=== PATIENT | male | born 1985 | race African-American/Black ===

== ENCOUNTER 2016-08-25 12:37 | Observation (INO) | payer MEDICAID ==
[~2016-08-25] VITALS: Ht 172.7 cm; Wt 68.6 kg
[~2016-08-25 12:37] MED LIST: BUPR-86 PO; BUPR150T13 PO; CLON0.1T PO; FOLI-17 PO; OLAN10TA3 PO; OLAN5TAB3 PO; OLAN5TAB9 PO; THIA100T6 PO; TRAZ100T15 PO; WELLBUTRIN; ZIPR20CA2 PO; ZYPREXA
[2016-08-25] MEDS ORDERED: ZIPRASIDONE 20 MG INJ IM ONE ×2 (13:30→14:27)
[2016-08-25 13:42] LABS: ACETAMINOPHEN < 2 mcg/mL (10-30); BLOOD UREA NITROGEN 5 mg/dL (7-18)
[2016-08-25 18:00] LABS: DAU SCREEN DISCLAIMER
[2016-08-25] MEDS ORDERED: BISACODYL 10 MG SUPP PR PRN (20:00)
[2016-08-25] MEDS ORDERED: ACETAMINOPHEN 325 MG TABLET PO PRN (20:00)
[2016-08-25] MEDS ORDERED: ONDANSETRON ODT 4 MG PO PRN (20:00)
[2016-08-25] MEDS ORDERED: POLYETHYLENE GLYCOL 17 GM PACKET PO PRN (20:00)
[2016-08-25 20:34] VITALS: BP 132/86
[2016-08-25] MEDS ORDERED: OLANZAPINE 5 MG TABLET PO SCH (21:00)
[2016-08-26 08:00] VITALS: BP 109/74
[2016-08-26] MEDS ORDERED: SENNA/DOCUSATE TABLET PO SCH (09:00)
== END 2016-08-26 16:15 ==
LOC: ED 15:16 → INTOOBSV 19:18 → EDIP 19:18 → 3E 20:34
PROVIDERS: ADMIT Internal Medicine; ATTEND Internal Medicine
DX: R45.851 Suicidal ideations (principal); R44.1 Visual hallucinations; R44.0 Auditory hallucinations; R00.0 Tachycardia, unspecified; F20.9 Schizophrenia, unspecified; F31.9 Bipolar disorder, unspecified; F17.210 Nicotine dependence, cigarettes, uncomplicated
CPT/HCPCS: 36415; 80048; 80307; 80329; 81003; 82040; 85025; 93005; 96372; 99285; G0378; J3486; G0480

== ENCOUNTER 2016-08-30 16:41 | Emergency (ER) | payer MEDICAID ==
[~2016-08-30] VITALS: Ht 172.7 cm; Wt 68.7 kg
[2016-08-30 16:53] VITALS: BP 163/91
[2016-08-30 17:36] LABS: BLOOD UREA NITROGEN 9 mg/dL (7-18)
[2016-08-30 17:37] LABS: ACETAMINOPHEN < 2 mcg/mL (10-30)
[2016-08-30] MEDS ORDERED: CHLO200T2 PO (17:45)
[2016-08-30] MEDS ORDERED: BUPR-86 PO (17:45)
[2016-08-30 17:46] LABS: DIFF TOTAL CELLS COUNTED 100 CELL DIFF
[2016-08-30 17:48] LABS: VERIFY COUNTS? YES
== END 2016-08-30 18:59 | disposition home or self-care (01) ==
LOC: ED 18:51
DX: F42.9 Obsessive-compulsive disorder, unspecified (principal); F41.0 Panic disorder [episodic paroxysmal anxiety]; F29 Unspecified psychosis not due to a substance or known physiological condition; F32.9 Major depressive disorder, single episode, unspecified; F20.9 Schizophrenia, unspecified; F15.10 Other stimulant abuse, uncomplicated; Z87.891 Personal history of nicotine dependence; Z88.8 Allergy status to other drugs, medicaments and biological substances
CPT/HCPCS: 36415; 80048; 80307; 80329; 82040; 85025; 99284; G0480

== ENCOUNTER 2016-09-01 02:02 | Emergency (ER) | payer MEDICAID ==
[~2016-09-01] VITALS: Ht 172.7 cm; Wt 64.7 kg
[~2016-09-01 02:02] MED LIST changes: +CHLO200T2 PO
[2016-09-01 02:10] VITALS: BP 130/58
== END 2016-09-01 03:16 | disposition home or self-care (01) ==
LOC: ED 02:49
DX: F20.9 Schizophrenia, unspecified (principal); F32.9 Major depressive disorder, single episode, unspecified; F15.10 Other stimulant abuse, uncomplicated
CPT/HCPCS: 99284

== ENCOUNTER 2016-09-10 05:30 | Emergency (ER) | payer MEDICAID ==
[~2016-09-10] VITALS: Ht 172.7 cm; Wt 69.3 kg
[2016-09-10 05:31] VITALS: BP 109/71
== END 2016-09-10 06:14 | disposition home or self-care (01) ==
LOC: ED 06:13
DX: Z76.0 Encounter for issue of repeat prescription (principal); F20.1 Disorganized schizophrenia
CPT/HCPCS: 99283

== ENCOUNTER 2016-10-07 08:49 | Emergency (ER) | payer MEDICAID ==
[~2016-10-07] VITALS: Ht 172.7 cm; Wt 70.4 kg
[2016-10-07 08:51] VITALS: BP 123/73
[2016-10-07 10:40] LABS: ASPARTATE AMINO TRANSFERASE 22 U/L (15-37); BLOOD UREA NITROGEN 18 mg/dL (7-18)
== END 2016-10-07 11:45 | disposition left against medical advice (07) ==
LOC: ED 11:39
DX: R10.11 Right upper quadrant pain (principal)
CPT/HCPCS: 36415; 74020; 80053; 83690; 85025; 99285

== ENCOUNTER 2016-10-08 19:18 | Emergency (ER) | payer MEDICAID ==
[~2016-10-08] VITALS: Ht 172.7 cm; Wt 70.4 kg
[2016-10-08] MEDS ORDERED: SODIUM CHLORIDE 0.9% 1,000ML IVBOLUS ONE (21:00)
[2016-10-08] MEDS ORDERED: SODIUM CHLORIDE FLUSH 10ML SYR IVF ONE (21:00)
[2016-10-08 21:47] LABS: ASPARTATE AMINO TRANSFERASE 23 U/L (15-37); BLOOD UREA NITROGEN 14 mg/dL (7-18)
[2016-10-08] MEDS ORDERED: OMNIPAQUE 350 MG/ML, 100ML BOTTLE ONE (22:31)
[2016-10-08 23:47] VITALS: BP 122/80
== END 2016-10-08 23:49 | disposition home or self-care (01) ==
LOC: ED 23:24
DX: D18.03 Hemangioma of intra-abdominal structures (principal)
CPT/HCPCS: 36415; 74177; 80053; 83690; 85025; 85610; 96360; 96361; 99285; J7030; Q9967

== ENCOUNTER 2019-02-09 06:57 | Emergency (ER) | payer MEDICAID ==
[~2019-02-09] VITALS: Ht 172.7 cm; Wt 70.6 kg
[~2019-02-09 06:57] MED LIST changes: -CLON0.1T PO; +CLON0.1T22 PO; -THIA100T6 PO; +THIA100T67 PO; +TRAZ-137 PO; -TRAZ100T15 PO
[2019-02-09 08:08] LABS: MEAN CORPUSCULAR HEMOGLOBIN 27.7 pg (27.5-34.5); MEAN CORPUSCULAR HGB CONC 32.9 g/dL (33.2-36.2); MEAN CORPUSCULAR VOLUME 84.2 fL (81-97); MEAN PLATELET VOLUME 9.7 fL (7.4-10.4); PLATELET COUNT 223 x10^3/uL (130-400); RED BLOOD COUNT 4.88 x10^6/uL (4.38-5.82); RED CELL DISTRIBUTION WIDTH 14.8 % (9.4-14.8)
[2019-02-09 08:19] LABS: ALANINE AMINOTRANSFERASE 27 U/L (12-78); ALBUMIN 3.9 g/dL (3.4-5.0); ANION GAP 8 mmol/L (5-15); CALCIUM 8.7 mg/dL (8.5-10.1); CHLORIDE 106 mmol/L (98-107); CREATININE 1.07 mg/dL (0.7-1.3)
[2019-02-09 08:21] LABS: SALICYLATE LEVEL < 1.7 mg/dL (2.8-20.0)
[2019-02-09 08:22] LABS: ALKALINE PHOSPHATASE 51 U/L (45-117); TOTAL PROTEIN 7.5 g/dL (6.4-8.2)
[2019-02-09 08:38] LABS: BASOPHILS # (AUTO) 0.03 x10^3/uL (0-0.1); BASOPHILS % (AUTO) 1 % (0-1); EOSINOPHILS # (AUTO) 0.33 x10^3/uL (0-0.4); EOSINOPHILS % (AUTO) 6 % (1-7); LYMPHOCYTES # (AUTO) 1.53 x10^3/uL (1-3.4); LYMPHOCYTES % (AUTO) 29 % (22-44); MD NO; MONOCYTES # (AUTO) 0.71 x10^3/uL (0.2-0.8); MONOCYTES % (AUTO) 14 % (2-9); NEUTROPHILS # (AUTO) 2.68 x10^3/uL (1.8-6.8); NEUTROPHILS % (AUTO) 51 % (42-75)
--- NOTE | 2019-02-09 11:07 | NUR ---
TASK RN: FIRST CONTACT WITH PT. Pt sitting on gurney in room secured for SI. CAFETERIA SUPERVISOR at bedside. No needs expressed at this time.
--- NOTE | 2019-02-09 11:13 | NUR ---
Sitter near doorway in direct line of sight for observation. No needs requested at this time.
--- NOTE | 2019-02-09 11:21 | NUR ---
Lunch tray ordered.
--- NOTE | 2019-02-09 11:25 | NUR ---
Yellow slip sent to pharmacy requesting medication per EMAR.
[2019-02-09] MEDS ORDERED: HALOPERIDOL 5 MG TABLET PO PRN (11:30)
[2019-02-09] MEDS ORDERED: HALOPERIDOL 5 MG/ML IM PRN (11:30)
--- NOTE | 2019-02-09 11:30 | NUR ---
Preceptor RN (late entry): Bedside report from Lisandro RYAN pt care assumed at this time, pt moved to suicide secured ED room 39, sitter at doorway. Belongings secured by prior RN, awaiting meds from pharmacy & pt aware that UA is needed, lunch tray ordered & pt reports no other needs. KAMRON Bernal has been at bedside to assess pt & given her recommendation to EDMD. WCTM. Report to King RYAN
[2019-02-09] MEDS ORDERED: OLANZAPINE 10 MG TABLET ONE (12:16)
[2019-02-09] MEDS: FLUOXETINE HCL 20 MG CAPSULE PO SCH (12:21)
[2019-02-09] MEDS: OLANZAPINE 10 MG TABLET PO SCH (12:22)
--- NOTE | 2019-02-09 12:38 | NUR ---
PATIENT EATING LUNCH IN HOSPITAL BED IN A SUICIDE SECURED ROOM WITH A SITTER OUTSIDE. URINE COLLECTED. AWAITING UA RESULTS AND MD DISPOSITION.
[2019-02-09 12:45] LABS: MICROSCOPIC INDICATED
[2019-02-09 12:54] LABS: CULTURE INDICATED? NO
[2019-02-09 12:55] LABS: AMPHETAMINE SCREEN, URINE Negative (Negative); BARBITURATE SCREEN, URINE Negative (Negative); BENZODIAZEPINE SCREEN, URINE Negative (Negative); CANNABINOID SCREEN, URINE Positive (Negative); COCAINE SCREEN, URINE Negative (Negative); METHADONE SCREEN, URINE Negative (Negative); OPIATE SCREEN, URINE Negative (Negative)
--- NOTE | 2019-02-09 13:34 | NUR ---
PATIENT RESTING IN HOSPITAL BED IN SUICIDE SECURED ROOM WITH SITTER IN DOORWAY. AWAITING DOCTOR DISPO
--- NOTE | 2019-02-09 14:14 | NUR ---
TASK RN: FIRST CONTACT WITH PT. Pt resting on hospital bed with eyes closed supine. Pt has unlabored respirations with even chest rise and fall. Sitter near doorway in direct line of sight for observation. Room remains secured for SI and HI precautions. No needs expressed at this time.
--- NOTE | 2019-02-09 14:30 | NUR ---
PATIENT IS RESTING IN HOSPITAL BED IN SUICIDE SECURED ROOM WITH SITTERS IN THE DOORWAY.
--- NOTE | 2019-02-09 15:34 | NUR ---
PATIENT IS RESTING IN HOSPITAL BED IN SUICIDE SECURED ROOM WITH A SITTER IN THE DOORWAY. PATIENT HAS NO REQUESTS AT THIS TIME.
--- NOTE | 2019-02-09 15:49 | NUR ---
TOOK INVENTORY OF BELONGINGS. DOCUMENTED BELONGINGS.
--- NOTE | 2019-02-09 16:22 | NUR ---
PATIENT IS RESTING IN HOSPITAL BED IN A SUICIDE SECURED ROOM WITH A SITTER IN THE DOORWAY
--- NOTE | 2019-02-09 17:51 | NUR ---
PATIENT IS RESTING IN HOSPTIAL BED IN SUICIDE SECURED ROOM WITH A SITTER IN THE DOORWAY.
--- NOTE | 2019-02-09 18:18 | NUR ---
Preceptor RN: Pt asleep in hospital bed w/ symmetric & regular chest rise in suicide secured room w/ sitter at doorway, Pt has had dinner tray. FELI.
--- NOTE | 2019-02-09 18:54 | NUR ---
PACKET FAXED TO [facility]
--- NOTE | 2019-02-09 19:06 | NUR ---
REPORT RECEIVED FROM ANDRESSA RN. CARE ASSUMED. PT ASLEEP IN ROOM, SITTER IN HALLWAY FOR DIRECT LINE OF SIGHT.
--- NOTE | 2019-02-09 20:50 | NUR ---
PT ASLEEP IN ROOM, SITTER IN HALLWAY FOR DIRECT LINE OF SIGHT.
--- NOTE | 2019-02-09 21:18 | NUR ---
RECEIVED REPORT FROM CONNOR MOYER TO ASSUME CARE. PT RESTING ON HOSPITAL BED WITH EYES CLOSED. RESPIRATIONS EVEN, NONLABORED, VISIBLE. ROOM SECURED, SITTER IN [place].
--- NOTE | 2019-02-09 21:19 | NUR ---
REPORT GIVEN TO CONNOR BAKER. CARE TRANSFERRED AT THIS TIME.
--- NOTE | 2019-02-09 23:10 | NUR ---
PT. CONTINUES RESTING ON HOSPITAL BED WITH EYES CLOSED. NO DISTRESS NOTED. EVEN, CHEST RISE/FALL VISIBLE. SITMABRYIANS IN [place].
--- NOTE | 2019-02-10 00:19 | NUR ---
PT. CONTINUES RESTING ON HOSPITAL BED WITH EYES CLOSED. NO DISTRESS NOTED. EVEN, CHEST RISE/FALL VISIBLE. SITMABRYIANS IN [place].
--- NOTE | 2019-02-10 02:36 | NUR ---
PT. CONTINUES RESTING ON HOSPITAL BED WITH EYES CLOSED. NO DISTRESS NOTED. RESPIRATIONS EVEN, NON-LABORED. ROOM REMANS SECURED. SITTER IN [place]
--- NOTE | 2019-02-10 05:35 | NUR ---
PT RESTING IN BED WITH EYES CLOSED. RESPIRATIONS EVEN AND UNLABORED. ALL SAFETY MEASURES IN PLACE. NEEDS MET. SITTER IN [place].
--- NOTE | 2019-02-10 06:22 | NUR ---
PT RESTING IN BED. PT PROVIDED WATER UPON REQUEST. ALL NEEDS MET. SITTER IN LINE OF SIGHT IN HALLWAY. ROOM SECURED PER PROTOCOL.
--- NOTE | 2019-02-10 06:57 | NUR ---
REPORT TAKEN FROM CONNOR JUDD AND CONNOR BAKER. PT RESTING ON HOSPITAL BED. RESPIRATIONS EVEN AND UNLABORED. NADN. SITTER IN HALLWAY. ROOM SECURE.
--- NOTE | 2019-02-10 07:10 | NUR ---
BREAKFAST ORDERED FOR PT.
[2019-02-10] MEDS ORDERED: OLANZAPINE 10 MG TABLET ONE (08:09)
[2019-02-10] MEDS ORDERED: FLUOXETINE HCL 20 MG CAPSULE ONE (08:09)
[2019-02-10] MEDS: FLUOXETINE HCL 20 MG CAPSULE PO SCH (08:12)
[2019-02-10] MEDS: OLANZAPINE 10 MG TABLET PO SCH (08:12)
--- NOTE | 2019-02-10 08:15 | NUR ---
PT MEDICATED PER EMAR. DENIES SI/HI AT THIS TIME. RESTING ON HOSPITAL BED. ROOM SECURE. SITTER AT BEDSIDE. DENIES NEEDS. NADN. AWARE THAT BREAKFAST IS ON THE WAY.
--- NOTE | 2019-02-10 08:34 | NUR ---
PT PROVIDED WITH BREAKFAST TRAY.
--- NOTE | 2019-02-10 09:00 | NUR ---
REPORT RECEIVED FROM CONNOR MARMOLEJO AT BEDSIDE AT THIS TIME. PT IS SLEEPING, RESPS EVEN AND UNLABORED. SITTER MONITORING FROM [facility] FOR SAFETY. ROOM SECURE. CARE ASSUMED AT THIS TIME.
--- NOTE | 2019-02-10 10:11 | NUR ---
PT SLEEPING ON HOSPITAL BED, RESPS EVEN AND UNLABORED. SITTER MONITORING FROM HALLWAY FOR SAFETY. ROOM REMAINS SECURE.
--- NOTE | 2019-02-10 11:30 | NUR ---
TP RN: [facility] called, pt is 4th on their list for acceptance.
--- NOTE | 2019-02-10 11:47 | NUR ---
report given to break CONNOR Newton pt sleeping on hospital bed. resps even and unlabored. sitter monitoring from [facility] for safety.
--- NOTE | 2019-02-10 11:52 | NUR ---
BREAK RN: PT SLEEPING, RT LATERAL POSITION, EVEN & EASY CHEST RISE & FALL NOTED, HOSPITAL BED SIDE RAIL UP X2, SITTER OUTSIDE ROOM. SITTER STATES PT WAS UP TO BR "ABOUT 15 MINUTES AGO". LUNCH TRAY WAS PREVIOUSLY ORDERED.
--- NOTE | 2019-02-10 12:30 | NUR ---
SI LUNCH TRAY PROVIDED.
--- NOTE | 2019-02-10 13:23 | NUR ---
SI LUNCH MEAL TRAY CONSUMED APPROX 75%. PT DENIES ANY PAIN. PT A&OX4, RESPS EVEN AND UNLABORED. PT DENIES ANY NEEDS AT THIS TIME. ROOM REMAINS SECURE. SITTER MONITORING FROM [facility] FOR SAFETY.
--- NOTE | 2019-02-10 14:04 | NUR ---
REPORT FROM CONNOR MUNOZ. PT SLEEPING IN HOSPITAL BED AT THIS TIME. ROOM SECURED. SITTER OUTSIDE ROOM.
--- NOTE | 2019-02-10 14:07 | NUR ---
REPORT GIVEN TO CONNOR DYKES WHO IS ASSUMING CARE AT THIS TIME. SITTER MONITORING FROM [facility] FOR SAFETY, ROOM REMAINS SECURE.
--- NOTE | 2019-02-10 16:18 | NUR ---
PT ASLEEP IN [facility]. ROOM SECURED. SITTER OUTSIDE ROOM. NAD NOTED. EQUAL RISE AND FALL OF CHEST NOTED.
--- NOTE | 2019-02-10 18:26 | NUR ---
SPOKE WITH CIARRA REGARDING SUCIDAL ASSESMENT FOR SITTER. ORDER PLACED FOR PATIENT TO BE 2:1
--- NOTE | 2019-02-10 19:31 | NUR ---
PER NAVID AT [facility]- THIS PATIENT IS #2 FOR TOMORROW DISCHARGES COME UP
--- NOTE | 2019-02-10 19:55 | NUR ---
Report to tyler Paredes.
--- NOTE | 2019-02-10 20:00 | NUR ---
REPORT RECEIVED AND CARE ASSUMED. PT RESTING AND WATCHING TV. FINISHED DINNER TRAY. WATER GIVEN. NO FURTHER NEEDS EXPRESSED. VSS. ROOM SECURED AND SITTER IN PLACE FOR OBS.
--- NOTE | 2019-02-10 21:15 | NUR ---
Pt resting and watching TV with no needs expressed. Room secured and sitter in place for obs.
--- NOTE | 2019-02-10 22:30 | NUR ---
pt sleeping with resp even and unlabored. sitter in place. no needs expressed.
--- NOTE | 2019-02-10 23:30 | NUR ---
PT SLEEPING WITH RESP EVEN AND UNLABORED. SITTER IN PLACE FOR OBS. ROOM SECURED.
--- NOTE | 2019-02-11 01:19 | NUR ---
REPORT TO DAHLIA RYAN
--- NOTE | 2019-02-11 01:29 | NUR ---
IN BED. RESP ARE EVEN AND NON LABORED. SITTER AT THE DOOR.
--- NOTE | 2019-02-11 02:47 | NUR ---
IN BED. RESP ARE EVEN AND NON LABORED. SITTER AT THE DOOR.
--- NOTE | 2019-02-11 04:14 | NUR ---
IN BED. RESP ARE EVEN AND NON LABORED. SITTER AT THE DOOR.
--- NOTE | 2019-02-11 05:21 | NUR ---
IN BED. RESP ARE EVEN AND NON LABORED. SITTER AT THE DOOR.
--- NOTE | 2019-02-11 05:22 | NUR ---
REPORT FROM DAHLIA, RN
--- NOTE | 2019-02-11 06:56 | NUR ---
REPORT RECEIVED FROM DEJUAN RYAN.
--- NOTE | 2019-02-11 07:49 | NUR ---
TASK RN: PT RESTING IN BED. SITTER REMAINS AT BEDSIDE. ROOM REMAINS SECURE.
--- NOTE | 2019-02-11 08:14 | NUR ---
MEAL TRAY PROVIDED AT THIS TIME.
[2019-02-11] MEDS ORDERED: FLUOXETINE HCL 20 MG CAPSULE ONE (08:51)
[2019-02-11] MEDS ORDERED: OLANZAPINE 10 MG TABLET ONE (08:51)
[2019-02-11] MEDS: FLUOXETINE HCL 20 MG CAPSULE PO SCH (08:53)
[2019-02-11] MEDS: OLANZAPINE 10 MG TABLET PO SCH (08:53)
--- NOTE | 2019-02-11 08:56 | NUR ---
PT MEDICATED PER EMAR. PT TOLERATED WELL.
--- NOTE | 2019-02-11 10:13 | NUR ---
pt sleeping in [facility]. resps even and unlabored. sitter monitoring from hallway for safety. room remains secure.
--- NOTE | 2019-02-11 11:02 | NUR ---
PT SLEEPING IN HOSPITAL BED. RESPS EVEN AND UNLABORED. SITTER MONITORING FROM HALLWAY FOR SAFETY. ROOM REMAINS SECURE.
--- NOTE | 2019-02-11 12:00 | NUR ---
MEAL TRAY ORDERED AT THIS TIME.
--- NOTE | 2019-02-11 13:13 | NUR ---
MEAL TRAY PROVIDED AT THIS TIME.
--- NOTE | 2019-02-11 14:20 | NUR ---
PT RESTING IN HOSPITAL BED. RESPS EVEN AND UNLABORED. SITTER MONITORING FROM HALLWAY. ROOM REMAINS SECURE.
--- NOTE | 2019-02-11 15:04 | NUR ---
PT SLEEPING IN HOSPITAL BED. RESPS EVEN AND UNLABORED. SITTER MONITORING FROM HALLWAY FOR SAFETY. ROOM REMAINS SECURE.
--- NOTE | 2019-02-11 16:38 | NUR ---
PT SLEEPING IN HOSPITAL BED. RESPS EVEN AND UNLABORED. SITTER MONITORING FROM HALLWAY FOR SAFETY. ROOM REMAINS SECURE.
--- NOTE | 2019-02-11 17:53 | NUR ---
MEAL TRAY ORDERED AT THIS TIME.
--- NOTE | 2019-02-11 18:25 | NUR ---
PT SLEEPING IN HOSPITAL BED. RESPS EVEN AND UNLABORED. SITTER MONITORING FROM HALLWAY FOR SAFETY. ROOM REMAINS SECURE.
--- NOTE | 2019-02-11 18:36 | NUR ---
MEAL TRAY PROVIDED AT THIS TIME.
--- NOTE | 2019-02-11 18:53 | NUR ---
REPORT GIVEN TO GREG RYAN.
--- NOTE | 2019-02-11 19:45 | NUR ---
Report received from CONNOR Morrison. Assumed care of this patient. Patient laying in bed, watching television with even and unlabored respiratins. No sign of acute distress. sitter on direct line of sight.
--- NOTE | 2019-02-11 19:50 | NUR ---
Patient requested for a shower. Towels provided, patient directed to shower room. Sitter on the door way monitoring patient.
--- NOTE | 2019-02-11 19:55 | NUR ---
Patient done with shower. Patient back on bed, watching television. Will continue to monitor.
--- NOTE | 2019-02-11 21:57 | NUR ---
Patient sleeping at this time with even and unlabored respirations. Sitter at the door way, in direct line of sight. Will continue to monitor.
--- NOTE | 2019-02-11 23:59 | NUR ---
Patient sleeping with even, unlabored respirations. Sitter at the door way, in direct line of sight. Will continue to monitor.
--- NOTE | 2019-02-12 01:22 | NUR ---
Patient sleeping with even, and unlabored respirations. Sitter at the doorway , patient in direct line of sight. Will continue to monitor.
--- NOTE | 2019-02-12 03:10 | NUR ---
Patient still sleeping with even , unlabored respirations. Sitter at the doorway, in direct line of sight. Will continue to monitor.
--- NOTE | 2019-02-12 04:44 | NUR ---
Patient sleeping. Even and unlabored respirations noted. Sitter at the doorway, in direct line of site. Will continue to monitor.
--- NOTE | 2019-02-12 06:30 | NUR ---
Patient still asleep. Even and unlabored respirations noted. Sitter at the doorway, in direct line of sight. Will continue to monitor.
--- NOTE | 2019-02-12 07:09 | NUR ---
Received report from CONNOR Juan, the pt is lying in bed with his eyes closed, he states he had poor sleep last night, appetite has been fair. He continues to endorse having thougts of suicide with a plan, the pt placed the covers over his head and was not willing to discuss his plan. Sitter in pt's doorway, room is secure. Will continue to monitor.
[2019-02-12] MEDS ORDERED: OLANZAPINE 10 MG TABLET ONE (08:16)
[2019-02-12] MEDS ORDERED: FLUOXETINE HCL 20 MG CAPSULE ONE (08:16)
[2019-02-12] MEDS: OLANZAPINE 10 MG TABLET PO SCH (08:18)
[2019-02-12] MEDS: FLUOXETINE HCL 20 MG CAPSULE PO SCH (08:18)
--- NOTE | 2019-02-12 08:51 | NUR ---
The pt is A&O x4, he is calm at this time. He continues to endorse having thoughts of suicide, no plan at this time. He is compliant with his medications, he has a fair appetite, he ate approx. 60% of his breakfast. Sitter in doorway, will continue to monitor.
--- NOTE | 2019-02-12 10:08 | NUR ---
Throughput RN: Called [facility] for status update, patient will not be accepted today due to the observation of (there will not be discharges on this holiday).
--- NOTE | 2019-02-12 10:12 | NUR ---
Throughput RN: Spoke with Amanda at [facility] regarding patient's status, due to patient's insurance they are not the preferred provider for this patient. Patient declined at this time.
--- NOTE | 2019-02-12 11:07 | NUR ---
He is lying in bed with the covers over his head, sitter at doorway. Will continue to monitor.
--- NOTE | 2019-02-12 11:50 | NUR ---
The pt continues to keep the covers over his head, waiting for lunch to be delivered. Sitter in doorway, will continue to monitor.
--- NOTE | 2019-02-12 12:43 | NUR ---
The pt was up ambulating in the hallway and also went to the bathroom earlier. He is currently eating lunch. Sitter at doorway, room secured. Will continue to monitor.
--- NOTE | 2019-02-12 14:26 | NUR ---
Pt appears to be sleeping at this time, sitter at doorway, will continue to monitor
--- NOTE | 2019-02-12 15:39 | NUR ---
Pt is lying in bed watching TV, sitter at doorway, will continue to monitor
--- NOTE | 2019-02-12 18:51 | NUR ---
Gave report to CONNOR Roblero, room safe, sitter in doorway.
--- NOTE | 2019-02-12 18:57 | NUR ---
DEEPAK. No immediate needs. Sitter in hallway. Roller doors in place.
--- NOTE | 2019-02-12 21:01 | NUR ---
Pt amb w/ steady gait to rr. No needs from pt.
--- NOTE | 2019-02-12 22:21 | NUR ---
No immediate needs. Sitter in hallway. Roller doors in place.
--- NOTE | 2019-02-12 23:23 | NUR ---
No immediate needs. Sitter in hallway. Roller doors in place.
--- NOTE | 2019-02-13 00:58 | NUR ---
No immediate needs. Sitter in hallway. Roller doors in place.
--- NOTE | 2019-02-13 02:04 | NUR ---
Pt sleeping comfortably on hospital bed. Nadn. Rr even and unlabored.
--- NOTE | 2019-02-13 03:29 | NUR ---
Pt sleeping comfortably on hospital bed. Nadn. Rr even and unlabored.
--- NOTE | 2019-02-13 04:47 | NUR ---
Pt sleeping comfortably on hospital bed. Nadn. Rr even and unlabored.
--- NOTE | 2019-02-13 05:42 | NUR ---
Pt sleeping comfortably on hospital bed. Nadn. Rr even and unlabored. Given water per request.
--- NOTE | 2019-02-13 06:01 | NUR ---
Pt sleeping comfortably on hospital bed. Nadn. Rr even and unlabored.
--- NOTE | 2019-02-13 06:47 | NUR ---
Pt report to Latasha scott.
--- NOTE | 2019-02-13 07:00 | NUR ---
ASSUMED CARE. PT SLEEPING. SITTER OUTSIDE ROOM WITH PT IN HIS DIRECT VIEW. EQUIPMENT AND SUPPLIES SECURED BEHIND PULL DOWN DOOR.
--- NOTE | 2019-02-13 07:00 | NUR ---
ASSUMED CARE. PT SLEE
[2019-02-13] MEDS: OLANZAPINE 10 MG TABLET PO SCH (08:22)
[2019-02-13] MEDS: FLUOXETINE HCL 20 MG CAPSULE PO SCH (08:22)
--- NOTE | 2019-02-13 08:26 | NUR ---
AWOKE PT AND MEDS GIVEN PER JUN. PROVIDED BREAKFAST
--- NOTE | 2019-02-13 10:22 | NUR ---
PT LYING IN BED WITH EYES CLOSED
--- NOTE | 2019-02-13 13:28 | NUR ---
BEDSIDE REPORT FROM DUONG RYAN. PT RESTING IN BED IN SECURED ROOM WITH SITTER AT DOORWAY. PER SITTER PT USED URINAL AND WENT BACK TO SLEEP. NO NEEDS AT THIS TIME.
[2019-02-13] MEDS ORDERED: OLANZAPINE 5 MG TABLET PO ONE (13:30)
--- NOTE | 2019-02-13 14:10 | NUR ---
BREAK RN: PT SLEEPING IN RT LATERAL POSITION, EVEN CHEST RISE & FALL NOTED. ROOM SECURE. SITTER OUTSIDE ROOM.
--- NOTE | 2019-02-13 15:02 | NUR ---
PT SLEEPING IN BED IN SECURED ROOM WITH SITTER AT DOORWAY. EQUAL CHEST RISE AND FALL
--- NOTE | 2019-02-13 16:04 | NUR ---
PT SLEEPING IN BED IN SECURED ROOM WITH SITTER AT DOORWAY, TV ON. EQUAL CHEST RISE AND FALL
--- NOTE | 2019-02-13 16:56 | NUR ---
PT SLEEPING IN BED IN SECURED ROOM WITH SITTER AT DOORWAY. EQUAL CHEST RISE AND FALL
--- NOTE | 2019-02-13 16:57 | NUR ---
DINNER TRAY ORDERED
--- NOTE | 2019-02-13 18:02 | NUR ---
PT GIVEN DINNER TRAY. PT RESTING IN BED WITH SITTER AT DOORWAY WATCHING TV. NO NEEDS AT THIS TIME.
--- NOTE | 2019-02-13 18:57 | NUR ---
REPORT FROM CONNOR JAEGER
--- NOTE | 2019-02-13 23:20 | NUR ---
PT SLEEPING IN BED IN SECURED ROOM WITH SITTER AT DOORWAY. EQUAL CHEST RISE AND FALL
--- NOTE | 2019-02-14 03:32 | NUR ---
PT SLEEPING IN BED IN SECURED ROOM WITH SITTER AT DOORWAY. EQUAL CHEST RISE AND FALL
--- NOTE | 2019-02-14 05:44 | NUR ---
PT SLEEPING IN BED IN SECURED ROOM WITH SITTER AT DOORWAY. EQUAL CHEST RISE AND FALL
--- NOTE | 2019-02-14 06:07 | NUR ---
MEAL TRAY ORDERED
--- NOTE | 2019-02-14 06:59 | NUR ---
REPORT TO CONNOR SHIRLEY
--- NOTE | 2019-02-14 08:00 | NUR ---
PATIENT RESTING IN BED, SAFETY PRECAUTIONS IN PLACE. MEAL TRAY PROVIDED
--- NOTE | 2019-02-14 08:59 | NUR ---
UPDATED [facility]MD [facility] ON SI PRECAUTIONS, RATE HIGH RISK HOWEVER NO RISK FOR CURRENT FLIGHT OR HARM, REQUESTED EVALUAITON FOR MODERATE PRECAUTIONS
--- NOTE | 2019-02-14 10:27 | NUR ---
PATIENT RESTING IN BED, SAFETY PRECAUTIONS IN PLACE. NO NEEDS AT THIS TIME.
--- NOTE | 2019-02-14 11:51 | NUR ---
MEAL TRAY PROVIDED, PATIENT COMFORTABLE
[2019-02-14] MEDS ORDERED: OLANZAPINE 10 MG TABLET ONE (12:08)
[2019-02-14] MEDS ORDERED: FLUOXETINE HCL 20 MG CAPSULE ONE (12:08)
[2019-02-14] MEDS ORDERED: OLANZAPINE 5 MG TABLET ONE (12:08)
[2019-02-14] MEDS: FLUOXETINE HCL 20 MG CAPSULE PO SCH (12:11)
[2019-02-14] MEDS: OLANZAPINE 10 MG TABLET PO SCH (12:12)
--- NOTE | 2019-02-14 14:30 | NUR ---
TASK RN: PT CURRENTLY SLEEPING IN BED. PT AWAKENS TO NAME BEING CALLED. NAD NOTED. SKIN PWD. RESP EVEN AND UNLABORED. NAD NOTED. GARAGE DOORS DOWN IN ROOM. BELONGINGS IN LOCKED LOCKER. SITTER AT DOORSIDE.
--- NOTE | 2019-02-14 15:56 | NUR ---
PATIENT COOPERATIVE, RESTING IN ROOM. SAFETY PRECAUTIONS IN PLACE.
--- NOTE | 2019-02-14 18:08 | NUR ---
MEAL TRAY PROVIDED, NO COPLAINTS AT THIS TIME. SAFETY PRECAUTIONS IN PLACE
--- NOTE | 2019-02-14 18:52 | NUR ---
REPORT OF PT FROM CONNOR SHIRLEY AND ASSUMING CARE OF PT AT THIS TIME.
--- NOTE | 2019-02-14 19:31 | NUR ---
pt sleeping in [facility] at this time; diogenes. sitter outside of pt room for direct observation of pt.
--- NOTE | 2019-02-14 21:14 | NUR ---
Tanisha velazquez in ED - 02/14/19 at 2115 by [email or web address] PT RESTING IN [facility] AT THIS TIME; SITTER OUTSIDE OF PT ROOM FOR DIRECT OBSERVATION OF PT.
--- NOTE | 2019-02-14 21:15 | NUR ---
PT RESTING IN [facility] AT THIS TIME; DEEPAK. SITTER OUTSIDE OF PT ROOM FOR DIRECT OBSERVATION OF PT.
--- NOTE | 2019-02-14 22:21 | NUR ---
Tanisha velazquez in EDM - 02/15/19 at 0057 by HERMANN REPORT OF PT FROM CONNOR SHIRLEY AND ASSUMING CARE OF PT AT THIS TIME.
--- NOTE | 2019-02-14 22:21 | NUR ---
pt sleeping in [facility] at this time; diogenes. sitter outside of pt room for direct observation of pt.
--- NOTE | 2019-02-14 23:13 | NUR ---
pt sleeping in [facility] at this time; diogenes. sitter outside of pt room for direct observation of pt.
--- NOTE | 2019-02-14 23:13 | NUR ---
Tanisha velazquez in ED - 02/15/19 at 0058 by HERMANN REPORT OF PT FROM CONNOR SHIRLEY AND ASSUMING CARE OF PT AT THIS TIME.
--- NOTE | 2019-02-15 00:58 | NUR ---
pt sleeping in [facility] at this time; diogenes. sitter outside of pt room for direct observation of pt.
--- NOTE | 2019-02-15 02:37 | NUR ---
pt sleeping in [facility] at this time; diogenes. sitter outside of pt room for direct observation of pt.
--- NOTE | 2019-02-15 03:55 | NUR ---
PT UP TO BATHROOM. PT AMBULATES TO RESTROOM WITH STEADY GAIT AND THEN BACK TO ROOM. SITTER OUTSIDE OF PT ROOM FOR DIRECT OBSERVATION OF PT AT THIS TIME.
--- NOTE | 2019-02-15 04:55 | NUR ---
pt sleeping in [facility] at this time; diogenes. sitter outside of pt room for direct observation of pt.
--- NOTE | 2019-02-15 05:06 | NUR ---
PT VSS AND UPDATED IN EMR.
--- NOTE | 2019-02-15 06:32 | NUR ---
pt sleeping in [facility] at this time; diogenes. sitter outside of pt room for direct observation of pt.
--- NOTE | 2019-02-15 06:55 | NUR ---
REPORT OF PT TO CONNOR WATTERS. ALL QUESTIONS ANSWERED.
--- NOTE | 2019-02-15 07:00 | NUR ---
ASSUMED CARE OF PT. PT SLEEPING. PT IN DIRECT VIEW OF SITTER OUTSIDE ROOM. EQUIPMENT AND SUPPLIES SECURED BEHIND PULL DOWN DOORS
--- NOTE | 2019-02-15 08:03 | NUR ---
Task RN - Pt provided [facility] ED security diet tray. Pt in NAD. Resting on [employer] eating meal. All concerns addressed. Sitter in place in line of site of pt.
--- NOTE | 2019-02-15 08:49 | NUR ---
REPORT RECEIVED FROM CONNOR WATTERS. CARE ASSUMED AT THIS TIME
[2019-02-15] MEDS ORDERED: FLUOXETINE HCL 20 MG CAPSULE ONE (08:55)
[2019-02-15] MEDS ORDERED: OLANZAPINE 10 MG TABLET ONE (08:55)
[2019-02-15] MEDS: FLUOXETINE HCL 20 MG CAPSULE PO SCH (09:06)
[2019-02-15] MEDS: OLANZAPINE 10 MG TABLET PO SCH (09:06)
--- NOTE | 2019-02-15 09:09 | NUR ---
PT MEDICATED PER ORDERS. PT STATES STILL SUICIDAL WITH SAME PLAN PRIOR TO ADMISSION. SITTER IN HALLWAY IN DIRECT LINE OF SIGHT TO PT.
--- NOTE | 2019-02-15 10:19 | NUR ---
PT ASLEEP ON HOSPITAL BED, SITTER IN HALLWAY IN DIRECT LINE OF SIGHT.
--- NOTE | 2019-02-15 11:12 | NUR ---
PT ASLEEP ON HOSPITAL BED, SITTER IN HALLWAY IN DIRECT LINE OF SIGHT.
--- NOTE | 2019-02-15 12:25 | NUR ---
PT ASLEEP ON HOSPITAL BED, SITTER IN HALLWAY IN DIRECT LINE OF SIGHT. LUNCH TRAY WITH SITTER.
--- NOTE | 2019-02-15 13:00 | NUR ---
PT ASLEEP ON HOSPITAL BED, SITTER IN HALLWAY IN DIRECT LINE OF SIGHT.
--- NOTE | 2019-02-15 14:05 | NUR ---
PT ASLEEP ON HOSPITAL BED, SITTER IN HALLWAY IN DIRECT LINE OF SIGHT.
--- NOTE | 2019-02-15 14:47 | NUR ---
TASK RN: RECIEVED BEDSIDE REPORT FROM CONNOR MOYER. ALL SAFETY MEASURES OBTAINED. SITTER AT DOORWAY, PT WITHIN FULL VIEW., PT SLEEPING ON HOSP BED. RESPS EQUAL AND UNLABORED. WILL CONTINUE TO MONITOR.
--- NOTE | 2019-02-15 15:13 | NUR ---
BEDSIDE REPORT TO CONNOR MOYER.
--- NOTE | 2019-02-15 15:15 | NUR ---
PT ASLEEP ON HOSPITAL BED, SITTER IN HALLWAY IN DIRECT LINE OF SIGHT.
--- NOTE | 2019-02-15 16:04 | NUR ---
PT ASLEEP ON HOSPITAL BED, SITTER IN HALLWAY IN DIRECT LINE OF SIGHT. DINNER TRAY ORDERED.
--- NOTE | 2019-02-15 16:53 | NUR ---
PT GIVEN DINNER TRAY. SITTER IN HALLWAY IN DIRECT LINE OF SIGHT FOR CLOSE OBS.
--- NOTE | 2019-02-15 17:47 | NUR ---
PT GIVEN JUICE, RESTING IN HOSPITAL BED, NO NEEDS, SITTER IN HALLWAY IN DIRECT LINE OF SIGHT.
--- NOTE | 2019-02-15 18:55 | NUR ---
PT ASLEEP ON HOSPITAL BED, SITTER IN HALLWAY IN DIRECT LINE OF SIGHT. DINNER TRAY ORDERED.
--- NOTE | 2019-02-15 19:36 | NUR ---
PT ASLEEP ON HOSPITAL BED, SITTER IN HALLWAY IN DIRECT LINE OF SIGHT.
--- NOTE | 2019-02-15 20:12 | NUR ---
PT ASLEEP ON HOSPITAL BED, SITTER IN HALLWAY IN DIRECT LINE OF SIGHT.
--- NOTE | 2019-02-15 20:47 | NUR ---
PT GIVEN SNACKS PER REQUEST. SITTER IN DIRECT LINE OF SIGHT.
--- NOTE | 2019-02-15 20:59 | NUR ---
REPORT GIVEN TO CONNOR CARVALHO. CARE TRANSFERRED AT THIS TIME.
--- NOTE | 2019-02-15 23:31 | NUR ---
PT SLEEPING, NO ACUTE DISTRESS NOTED AT THIS TIME. SITTER OUT SIDE ROOM FOR OBSERVATION. WILL CONT TO MONITOR.
--- NOTE | 2019-02-16 01:38 | NUR ---
REPORT RECEIVED FROM CONNOR CARVALHO. ASSUMED CARE OF PT. PT SLEEPING. RESPIRATIONS EVEN AND UNLABORED. SITTER OUTSIDE DOOR MONITORING PT. ROOM REMAINS SECURE. WILL CONTINUE TO MONITOR
--- NOTE | 2019-02-16 02:21 | NUR ---
PT SLEEPING. RESPIRATIONS EVEN AND UNLABORED. SITTER OUTSIDE DOOR MONITORING PT, WILL CONTINUE TO MONITOR.
--- NOTE | 2019-02-16 03:29 | NUR ---
TP: SPOKE TO YOSVANY FIRESTOPPER TECHNICIAN AT [facility](HAD TO CALL SUP PHONE) HE STATES PT WILL BE ACCEPTED FRIDAY OR FRIDAY AT THE LATEST. SUP PHONE NUMBER IS LOCATED IN THE TP PHONE. ALL OTHER NUMBERS FOR [facility] WERE NOT WORKING.
--- NOTE | 2019-02-16 04:09 | NUR ---
PT CONTINUES TO SLEEP. RESPIRATIONS EVEN AND UNLABORED. SITTER OUTSIDE DOOR
--- NOTE | 2019-02-16 06:58 | NUR ---
REPORT FROM CONNOR GREGORY. ASSUMED CARE OF PATIENT AT THIS TIME. PATIENT SLEEPING COMFORTABLY IN [place]. VISIBLE CHEST RISE AND FALL. SITTER AT DOORWAY. Addendum: 02/16/19 at 0834 by JR CORRECTION: PATIENT SLEEPING COMFORTABLY IN HOSPITAL BED.
[2019-02-16 08:00] VITALS: BP 117/76
--- NOTE | 2019-02-16 08:00 | NUR ---
PATIENT PROVIDED BREAKFAST TRAY, ALL SAFETY MEASURES IN PLACE, VS UPDATED IN CHART. SITTER AT DOORWAY WITH PATIENT IN SIGHT. NO ADDITIONAL NEEDS AT THIS TIME.
[2019-02-16] MEDS ORDERED: OLANZAPINE 10 MG TABLET ONE (09:43)
[2019-02-16] MEDS ORDERED: FLUOXETINE HCL 20 MG CAPSULE ONE (09:43)
[2019-02-16] MEDS ORDERED: OLANZAPINE 5 MG TABLET ONE (09:43)
[2019-02-16] MEDS: FLUOXETINE HCL 20 MG CAPSULE PO SCH (09:48)
[2019-02-16] MEDS: OLANZAPINE 10 MG TABLET PO SCH (09:48)
--- NOTE | 2019-02-16 09:49 | NUR ---
PATIENT LAYING COMFORTABLY IN HOSPITAL BED, CALM/COOPERATIVE. MEDICATIONS ADMINISTERED PER NAD. SITTER AT DOORWAY.
[2019-02-16] MEDS ORDERED: LORazepam 1MG TABLET ONE (10:27)
--- NOTE | 2019-02-16 11:17 | NUR ---
Psych MD evaluated patient, legal 2000 discontinued, all personal belongings given to patient. Patient/Caregiver given discharge instructions and they have confirmed that they understand the instructions. Patient ambulatory with steady gait to DC desk. Patient provided bus pass and resources for safe DC.
== END 2019-02-16 11:19 | disposition home or self-care (01) ==
LOC: ED 07:46
DX: F39 Unspecified mood [affective] disorder (principal); R45.851 Suicidal ideations; F23 Brief psychotic disorder; F32.9 Major depressive disorder, single episode, unspecified
CPT/HCPCS: 36415; 80053; 80307; 81001; 85025; 99284

== ENCOUNTER 2019-03-02 19:59 | Emergency (ER) | payer MEDICAID ==
[~2019-03-02] VITALS: Ht 172.7 cm; Wt 71.8 kg
--- NOTE | 2019-03-02 20:04 | NUR ---
[id number]
--- NOTE | 2019-03-02 20:15 | NUR ---
PT PLACED IN SECURE ROOM BELONGINGS PLACED IN PT LOCKER. SITTER IN HALLWAY FOR MONITORING AND SAFETY.
--- NOTE | 2019-03-02 20:35 | NUR ---
PT UP TO RESTROOM HOWEVER PT UNABLE TO URINATE AND PROVIDE A SAMPLE. PT HAD STEADY GAIT, NO ASSISTANCE REQUIRED. LAB AT BEDSIDE. PT CALM AND COOPERATIVE NO FURTHER NEEDS EXPRESSED AT THIS TIME.
[2019-03-02 21:04] LABS: ALANINE AMINOTRANSFERASE 54 U/L (12-78); ALBUMIN 3.4 g/dL (3.4-5.0); ANION GAP 5 mmol/L (5-15); CALCIUM 8.4 mg/dL (8.5-10.1); CHLORIDE 107 mmol/L (98-107); CREATININE 0.99 mg/dL (0.7-1.3)
[2019-03-02 21:07] LABS: ALKALINE PHOSPHATASE 69 U/L (45-117); BILIRUBIN,TOTAL 0.4 mg/dL (0.2-1.0); MEAN CORPUSCULAR HEMOGLOBIN 27.7 pg (27.5-34.5); MEAN CORPUSCULAR HGB CONC 32.4 g/dL (33.2-36.2); MEAN CORPUSCULAR VOLUME 85.4 fL (81-97); MEAN PLATELET VOLUME 9.8 fL (7.4-10.4); PLATELET COUNT 200 x10^3/uL (130-400); RED BLOOD COUNT 4.59 x10^6/uL (4.38-5.82); TOTAL PROTEIN 7.2 g/dL (6.4-8.2)
[2019-03-02 21:08] LABS: SALICYLATE LEVEL < 1.7 mg/dL (2.8-20.0)
--- NOTE | 2019-03-02 22:00 | NUR ---
PT SLEEPING ON [facility] SITTER REMAINS IN PLACE FOR SAFETY AND MONITORING.
[2019-03-02 22:19] LABS: BASOPHILS # (AUTO) 0.03 x10^3/uL (0-0.1); BASOPHILS % (AUTO) 1 % (0-1); EOSINOPHILS # (AUTO) 0.39 x10^3/uL (0-0.4); EOSINOPHILS % (AUTO) 6 % (1-7); LYMPHOCYTES # (AUTO) 1.93 x10^3/uL (1-3.4); LYMPHOCYTES % (AUTO) 29 % (22-44); MD SCAN; MONOCYTES # (AUTO) 0.72 x10^3/uL (0.2-0.8); MONOCYTES % (AUTO) 11 % (2-9); NEUTROPHILS # (AUTO) 3.67 x10^3/uL (1.8-6.8); NEUTROPHILS % (AUTO) 54 % (42-75)
--- NOTE | 2019-03-02 23:00 | NUR ---
REPORT FROM CAROL ARROYO RN. PT RESTING EVEN RISE AND FALL OF CHEST OBSERVED. PT AWARE THAT US IS NEEDED. SITTER IN VIEW OF PT.
--- NOTE | 2019-03-03 00:26 | NUR ---
FLOAT RN: PT RESTING IN ROOM. REGULAR RESP. SITTER AT DOOR. WILL CONTINUE TO MONITOR WHILE PRIMARY RN IS ON BREAK.
--- NOTE | 2019-03-03 01:59 | NUR ---
PT GIVEN WATER AND UA WAS AGAIN REQUESTED. PT AGREEABLE TO THIS. WILL REASSESS
--- NOTE | 2019-03-03 03:17 | NUR ---
PT ONCE AGAIN SLEEPING. PT AWARE OF NEED FOR UA. MD AWARE THAT WE ARE WAITING ON UA. SITTER IN VIEW OF PT.
--- NOTE | 2019-03-03 04:30 | NUR ---
PT STILL HASNT PROVIDED UA. MD AWARE. PT TO BE TELEPSYCHED. WAITING FOR EVALUATION
--- NOTE | 2019-03-03 05:42 | NUR ---
REPORT TO TELE PSYCH
[2019-03-03 06:00] VITALS: BP 127/59
--- NOTE | 2019-03-03 06:21 | NUR ---
Patient given discharge instructions and they have confirmed that they understand the instructions. Patient ambulatory with steady gait.
== END 2019-03-03 06:32 | disposition home or self-care (01) ==
LOC: ED 03-03 00:19
DX: R45.851 Suicidal ideations (principal); F20.9 Schizophrenia, unspecified; F42.8 Other obsessive-compulsive disorder; F41.0 Panic disorder [episodic paroxysmal anxiety]; F32.9 Major depressive disorder, single episode, unspecified
CPT/HCPCS: 36415; 80053; 80307; 85025; 99284

== ENCOUNTER 2019-03-21 14:29 | Emergency (ER) | payer MEDICAID ==
--- NOTE | 2019-03-21 14:38 | NUR ---
NA X 1 @ [id number]
== END 2019-03-21 14:53 | disposition left against medical advice (07) ==
LOC: ED 14:48
DX: F29 Unspecified psychosis not due to a substance or known physiological condition (principal); Z53.21 Procedure and treatment not carried out due to patient leaving prior to being seen by health care provider